=== PATIENT | female | born 1970 | race Two or more races ===

== ENCOUNTER 2023-06-10 22:46 | Emergency (ER) | payer MEDICAID, OTHER ==
[2023-06-10 23:29] VITALS: BP 135/72; PULSE 61; RESP 16; O2SAT 99
== END 2023-06-11 02:10 | disposition left against medical advice (07) ==
LOC: ER 22:48
DX: S01.81XA Laceration without foreign body of other part of head, initial encounter (principal); Z53.21 Procedure and treatment not carried out due to patient leaving prior to being seen by health care provider; W22.8XXA Striking against or struck by other objects, initial encounter; Y93.89 Activity, other specified; Y92.89 Other specified places as the place of occurrence of the external cause; Y99.8 Other external cause status